=== PATIENT | female | born 1960 | race Caucasian/White ===

== ENCOUNTER → 2016-10-12 | Outpatient (CLI) | payer OTHER ==
[~2016-10-12] MED LIST: ACET1CAP18 PO; ACET325 PO; GEMF600T PO; LOSA50TA PO; MULTTAB67 PO; OMEP40CA2 PO; RANI150T PO; SERT-129 PO
[2016-10-12 13:21] LABS: AUTOMATED NEUTROPHIL # 8.5 TH/MM3 (1.8-7.7); BASOPHIL % 0.4 % (0.0-2.0); EOSINOPHIL # 0.1 TH/MM3 (0-0.4); EOSINOPHIL % 1.3 % (0.0-4.0); HEMATOCRIT 46.2 % (35.0-46.0); HEMO FLAGS DIFF FINAL; LYMPH % 17.4 % (9.0-44.0); MEAN CORPUSCULAR HEMOGLOBIN 31.7 PG (27.0-34.0); MEAN CORPUSCULAR HGB CONC 34.5 % (32.0-36.0); MONO % 5.4 % (0.0-8.0); NEUT % 75.5 % (16.0-70.0); PLATELET COUNT 341 TH/MM3 (150-450); RED BLOOD COUNT 5.03 MIL/MM3 (4.00-5.30); RED CELL DISTRIBUTION WIDTH 13.3 % (11.6-17.2); WHITE BLOOD COUNT 11.2 TH/MM3 (4.0-11.0)
[2016-10-12 13:51] LABS: ALKALINE PHOSPHATASE 106 U/L (45-117); ALT (GPT) 17 U/L (10-53); ANION GAP 9 MEQ/L (5-15); AST (GOT) 9 U/L (15-37); BICARBONATE 26.9 MEQ/L (21.0-32.0); BLOOD UREA NITROGEN 13 MG/DL (7-18); CHLORIDE 100 MEQ/L (98-107); GLOMERULAR FILTRATION RATE 66 ML/MIN (>89); GLUCOSE,FASTING 97 MG/DL (74-99); HDL CHOLESTEROL 41.9 MG/DL (40.0-60.0); POTASSIUM 3.9 MEQ/L (3.5-5.1); SODIUM (NA) 136 MEQ/L (136-145); TOTAL BILIRUBIN ADULT 0.6 MG/DL (0.2-1.0)
== END ==
LOC: CLAB 12:25
PROVIDERS: ATTEND Family Medicine
DX: B19.20 Unspecified viral hepatitis C without hepatic coma (principal); I10 Essential (primary) hypertension; J44.9 Chronic obstructive pulmonary disease, unspecified; Z72.0 Tobacco use
CPT/HCPCS: 36415; 80053; 80061; 84443; 85025

== ENCOUNTER → 2017-05-17 | Outpatient (CLI) | payer OTHER ==
[~2017-05-17] MED LIST changes: -ACET325 PO
[2017-05-17 12:27] LABS: HDL CHOLESTEROL 34.8 MG/DL (40.0-60.0)
== END ==
LOC: CLAB 11:49
PROVIDERS: ATTEND Nurse Practitioner Family
DX: E78.5 Hyperlipidemia, unspecified (principal)
CPT/HCPCS: 36415; 80061

== ENCOUNTER 2017-11-07 02:21 | Emergency (ER) | payer OTHER ==
[~2017-11-07] VITALS: Ht 167.6 cm; Wt 72.0 kg
[~2017-11-07 02:21] MED LIST changes: -RANI150T PO
[2017-11-07 02:26] VITALS: BP 101/61; PULSE 85; RESP 16; TEMP 97.8; O2SAT 99
--- NOTE | 2017-11-07 02:52 | PD ---
HPI Chief Complaint: Laceration/Skin Injury Time Seen by Provider: 02:39 Travel History International Travel<30 days: No Contact w/Intl Traveler<30days: No Traveled to known affect area: No History of Present Illness HPI 57-year-old white female presents to emergency department for evaluation of a scalp laceration. She states that she has slipped on the wet floor at home striking her head. She did not lose consciousness. She denies any neck or back pain. No visual changes. No nausea vomiting. No numbness, tingling or weakness. She states the pain was only mild initially until the wound was palpated. She has not had a tetanus shot over 5 years. PFSH Past Medical History Arthritis: Yes Anxiety: Yes Depression: Yes Cancer: No Cardiovascular Problems: Yes High Cholesterol: Yes COPD: Yes Diminished Hearing: No Endocrine: No Gastrointestinal Disorders: Yes GERD: Yes Genitourinary: No Hypertension: Yes Immune Disorder: No Musculoskeletal: Yes Neurologic: No Psychiatric: Yes Reproductive: No Respiratory: Yes Immunizations Current: Yes Tetanus Vaccination: > 5 Years Influenza Vaccination: No ?: Not Menopausal: Yes Ovarian Cysts: Yes (R) Past Surgical History Gynecologic Surgery: Yes (Cyst right breast removed, Right ovary removed) Other Surgery: Yes (R BREAST CYST) Social History Alcohol Use: Yes (SOCIALLY) Tobacco Use: Yes (1 ppd) Substance Use: No Allergies-Medications (Allergen,Severity, Reaction): Coded Allergies: egg (Unverified Allergy, Unknown, 11/07/17) Reported Meds & Prescriptions Reported Meds & Active Scripts Active Sertraline (Sertraline HCl) 100 Mg Tab 100 Mg PO DAILY Losartan (Losartan Potassium) 50 Mg Tab 50 Mg PO DAILY Omeprazole 40 Mg Cap 40 Mg PO DAILY Gemfibrozil 600 Mg Tab 600 Mg PO BIDAC Take 30 minutes prior to breakfast and dinner. ON an EMPTY stomach Reported Multiple Vitamin 1 Tab 1 Tab PO DAILY Review of Systems Except as stated in HPI: all other systems reviewed are Neg Physical Exam Narrative GENERAL: Well-developed, well-nourished in no apparent distress. Nontoxic appearing. HEAD: Normocephalic, 4 cm posterior scalp laceration mild swelling. Neurovascular intact. No bony step off. EYES: Pupils equal round and reactive. Extraocular motions intact. No scleral icterus. No injection or drainage. ENT: Nose clear. Throat without erythema, tonsillar hypertrophy or exudate. Uvula midline. Airway patent. NECK: Trachea midline. Supple, nontender, moves head freely. No central bony tenderness or spasm. CARDIOVASCULAR: Regular rate and rhythm without murmurs, gallops, or rubs. RESPIRATORY: Clear to auscultation. Breath sounds equal bilaterally. No wheezes , rales, or rhonchi. GASTROINTESTINAL: Abdomen soft, non-tender, nondistended. No hepato-splenomegaly , or palpable masses. No guarding. EXTREMITIES: No clubbing, cyanosis, or edema. No joint tenderness. BACK: Nontender without deformity. No flank tenderness. NEUROLOGICAL: Awake, alert and oriented x 3 .Cranial nerves grossly intact. Motor and sensory grossly within normal limits. Normal speech. Data Data Last Documented VS Vital Signs Date Time Temp Pulse Resp B/P (MAP) Pulse Ox O2 Delivery O2 Flow Rate FiO2 11/07/17 02:26 97.8 85 16 101/61 (74) 99 [facility] Medical Decision Making Medical Screen Exam Complete: Yes Emergency Medical Condition: Yes Medical Record Reviewed: Yes Differential Diagnosis MDM: High Differential diagnoses: Fracture, sprain, strain, dislocation, contusion, neurovascular injury Narrative Course Patient's laceration is closed with ya. Tetanus status updated. Procedures Procedure Narrative LACERATION LOCATION: Posterior occiput LENGTH: 4 cm NUMBER OF STITCHES/YA: 6 REPAIR: The area of the laceration was prepped with Betadine and sterilely draped. The wound was copiously irrigated and explored without evidence of foreign body, tendon injury or neurovascular injury. The wound was closed using ya. This was a simple single layer repair. A sterile dressing was applied. The patient was advised to keep the dressing clean and dry. Patient tolerated the procedure well. Diagnosis Primary Impression: scalp laceration Additional Impression: head contusion Patient Instructions: General Instructions Additional Instructions: Rest. Head precautions. Tylenol for pain. Ice packs. Avoid alcohol. Avoid all sedating or intoxicating substances. Recheck with your physician within 1-2 days. Daily wound care with soap, water, Neosporin. [place] out in 7-9 days. Return to the ER for any problems. Med/Other Pt SpecificInfo: Wound Care Disposition: 01 DISCHARGE HOME Condition: Stable Bobby Pelaez Nov 07, 2017 02:51
[2017-11-07] MEDS ORDERED: TETANUS/DIPHTHERIA TOXOID ADULT 0.5 ML VIAL IM ONE (03:00)
== END 2017-11-07 03:58 | disposition home or self-care (01) ==
LOC: NEPD 02:21
DX: S01.01XA Laceration without foreign body of scalp, initial encounter (principal); S00.93XA Contusion of unspecified part of head, initial encounter; Z23 Encounter for immunization; F32.9 Major depressive disorder, single episode, unspecified; E78.00 Pure hypercholesterolemia, unspecified; J44.9 Chronic obstructive pulmonary disease, unspecified; I10 Essential (primary) hypertension; F17.210 Nicotine dependence, cigarettes, uncomplicated; Z91.012 Allergy to eggs; W01.0XXA Fall on same level from slipping, tripping and stumbling without subsequent striking against object, initial encounter
CPT/HCPCS: 12002; 90471; 90714

== ENCOUNTER 2017-11-13 23:44 | Emergency (ER) | payer OTHER ==
[~2017-11-13] VITALS: Ht 167.6 cm; Wt 63.5 kg
[~2017-11-13 23:44] MED LIST changes: -ACET1CAP18 PO
[2017-11-13 23:47] VITALS: BP 131/71; PULSE 67; RESP 16; TEMP 98.2; O2SAT 98
--- NOTE | 2017-11-14 00:25 | PD ---
HPI Chief Complaint: Wound/Suture/Staple Re-Check Time Seen by Provider: 00:13 Travel History International Travel<30 days: No Contact w/Intl Traveler<30days: No Traveled to known affect area: No History of Present Illness HPI 57-year-old female is here for wound check. Patient had laceration to scalp 7 days ago with staple repair. Patient states that she has some aching pain left upper back area since the accident a week ago also. Patient does not want any x -ray or any workup done the left upper back. PFSH Past Medical History Arthritis: Yes Anxiety: Yes Depression: Yes Cancer: No Cardiovascular Problems: Yes High Cholesterol: Yes COPD: Yes Diminished Hearing: No Endocrine: No Gastrointestinal Disorders: Yes GERD: Yes Genitourinary: No Hypertension: Yes Immune Disorder: No Musculoskeletal: Yes Neurologic: No Psychiatric: Yes Reproductive: No Respiratory: Yes (COPD) Immunizations Current: Yes Tetanus Vaccination: < 5 Years Influenza Vaccination: No ?: Not Menopausal: Yes Ovarian Cysts: Yes (R) Past Surgical History Gynecologic Surgery: Yes (Cyst right breast removed, Right ovary removed) Other Surgery: Yes (R BREAST CYST) Social History Alcohol Use: Yes (SOCIALLY) Tobacco Use: Yes (1 ppd) Substance Use: No Allergies-Medications (Allergen,Severity, Reaction): Coded Allergies: egg (Unverified Allergy, Unknown, 11/07/17) Reported Meds & Prescriptions Reported Meds & Active Scripts Active Sertraline (Sertraline HCl) 100 Mg Tab 100 Mg PO DAILY Losartan (Losartan Potassium) 50 Mg Tab 50 Mg PO DAILY Omeprazole 40 Mg Cap 40 Mg PO DAILY Gemfibrozil 600 Mg Tab 600 Mg PO BIDAC Take 30 minutes prior to breakfast and dinner. ON an EMPTY stomach Reported Multiple Vitamin 1 Tab 1 Tab PO DAILY Review of Systems General / Constitutional: No: Fever Eyes: No: Visual changes HENT: No: Headaches Cardiovascular: No: Chest Pain or Discomfort Respiratory: No: Shortness of Breath Gastrointestinal: No: Abdominal Pain Genitourinary: No: Dysuria Musculoskeletal: No: Pain Skin: No Rash Neurologic: No: Weakness Psychiatric: No: Depression Endocrine: No: Polydipsia Hematologic/Lymphatic: No: Easy Bruising Physical Exam Narrative GENERAL: Well-nourished, well-developed patient. SKIN: Focused skin assessment warm/dry. HEAD: Normocephalic. [place] in place. Wound healing well. EYES: No scleral icterus. No injection or drainage. NECK: Supple, trachea midline. No JVD or lymphadenopathy. CARDIOVASCULAR: Regular rate and rhythm without murmurs, gallops, or rubs. RESPIRATORY: Breath sounds equal bilaterally. No accessory muscle use. GASTROINTESTINAL: Abdomen soft, non-tender, nondistended. MUSCULOSKELETAL: No cyanosis, or edema. BACK: Mild tenderness on palpation left upper back medial to scapula area. Without obvious deformity. No CVA tenderness. Data Data Last Documented VS Vital Signs Date Time Temp Pulse Resp B/P (MAP) Pulse Ox O2 Delivery O2 Flow Rate FiO2 11/13/17 23:47 98.2 67 16 131/71 (91) 98 MDM Medical Decision Making Medical Screen Exam Complete: Yes Emergency Medical Condition: Yes Differential Diagnosis Differential diagnosis including staple removal, muscular injury left upper back , rib fracture, hemopneumothorax. Narrative Course 57-year-old female is here for staple removal. Patient also states that she has left upper back pain since the accident. Patient does not want any workup including x-ray done today. Examination shows some mild tenderness on palpation left upper back area. No crepitus or deformity noted. Breasts are equal bilaterally. Procedures Procedure Narrative Ya removal with staple remover. Diagnosis Primary Impression: Removal of ya Patient Instructions: General Instructions Additional Instructions: Advil Tylenol for pain. Follow-up with personal physician. Return as needed. Med/Other Pt SpecificInfo: No Meds Exist/No RX given Disposition: 01 DISCHARGE HOME Condition: Stable Drew Maza MD Nov 14, 2017 00:25
== END 2017-11-14 01:40 | disposition home or self-care (01) ==
LOC: NEPD 23:44
DX: Z48.02 Encounter for removal of sutures (principal)
CPT/HCPCS: 99281